=== PATIENT | male | born 1995 | race Caucasian/White ===

== ENCOUNTER 2016-03-11 16:38 | Emergency (ER) | payer OTHER ==
[2016-03-11] MEDS ORDERED: MORPHINE 4 MG/ML 1ML SYRINGE As Ordered ONE ×2 (17:01→17:48)
[2016-03-11] MEDS ORDERED: ONDANSETRON 4MG/2ML VIAL (J2405) As Ordered ONE (17:01)
[2016-03-11 17:19] LABS: BASO % 0.5 % (0.0-1.0); EOS # 0.1 K/mm3 (0.0-0.50); LARGE UNSTAINED CELL # 0.1 K/mm3 (0.0-0.4); LARGE UNSTAINED CELL % 1.8 % (0.0-4.0); LYMPH # 2.1 K/mm3 (1.5-6.5); LYMPH % 31.5 % (24.0-44.0); MEAN CORPUSCULAR HEMOGLOBIN 25.7 pg (27.0-33.0); MEAN CORPUSCULAR HGB CONC 32.6 g/dl (32.0-36.5); MONO # 0.3 K/mm3 (0.0-0.8); MONO % 3.9 % (0.0-5.0); NEUTROPHILS % 61.3 % (36.0-66.0); PLATELET COUNT, AUTOMATED 262 k/mm3 (150-450); RED CELL DISTRIBUTION WIDTH 12.9 % (11.5-14.5); WHITE BLOOD COUNT 6.5 K/mm3 (4.0-10.0)
[2016-03-11 18:17] LABS: ALBUMIN 4.2 GM/DL (3.2-5.2); ALBUMIN/GLOBULIN RATIO 1.24 (1.00-1.93); ALKALINE PHOSPHATASE 72 U/L (45-117); ALT/SGPT 45 U/L (12-78); ANION GAP 9 MEQ/L (8-16); AST/SGOT 22 U/L (15-37); BILIRUBIN,DIRECT < 0.1 MG/DL (0.0-0.2); BILIRUBIN,TOTAL 0.2 MG/DL (0.2-1.0); BLOOD UREA NITROGEN 14 MG/DL (7-18); CALCIUM LEVEL 8.7 MG/DL (8.5-10.1); CARBON DIOXIDE LEVEL 26 MEQ/L (21-32); CHLORIDE LEVEL 105 MEQ/L (98-107); CREATININE FOR GFR 0.84 MG/DL (0.70-1.30); GLUCOSE, FASTING 90 MG/DL (70-105); POTASSIUM SERUM 4.1 MEQ/L (3.5-5.1); SODIUM LEVEL 140 MEQ/L (136-145); TOTAL PROTEIN 7.6 GM/DL (6.4-8.2)
[2016-03-11] MEDS ORDERED: KETOROLAC 30 MG/ML VIAL (J1885) As Ordered ONE (19:26)
--- NOTE | 2016-03-11 20:20 | REPUSA ---
CLINICAL HISTORY: Biliary colic . TECHNIQUE: Realtime sonographic images were obtained in multiple projections. COMMENTS: The liver is of normal size, parenchyma demonstrates normal echogenicity. No discrete hepatic mass is seen. There is no intra or extrahepatic biliary ductal dilatation. CBD measures 1.9 mm. The gallbladder is physiologically distended without evidence of calculi. The gallbladder wall is not thickened and ther e is no pericholecystic fluid. There is no abdominal ascites. The right kidney measures 9.8 cm, free of hydronephrosis. IMPRESSION: No cholelithiasis or findings of acute cholecystitis. Thank you for your kind referral of this patient.
[2016-03-11] MEDS ORDERED: PANTOPRAZOLE 40MG TAB (PROTONIX) As Ordered ONE (21:19)
[2016-03-11] MEDS ORDERED: SUCRALFATE 1 GM TAB As Ordered ONE (21:20)
--- NOTE | 2016-03-11 22:00 | EDDOCDS ---
Physician Documentation [facility] Name: Ben Dwyer Age: 20 yrs Sex: Male : 1995 Arrival Date: 03/11/2016 Time: 16:38 Bed 14 Private MD: Disposition: 03/11 21:27 Critical Care: Critical care not applicable. le Disposition: 03/11/16 21:25 Discharged to Home/Self Care. Impression: Upper abdominal pain, unspecified, Acute gastritis. - Condition is Stable. - Discharge Instructions: Abdominal Pain, Adult, Gastritis, Adult. - Prescriptions for Protonix 40 mg Oral Tablet - take 1 tablet by ORAL route once daily; 30 tablet. - Medication Reconciliation, Kali Zuniga/Kevin, Local Pharmacy Hours form. - Follow up: Kali Zuniga [facility]; When: Call to arrange an appointment; Reason: Recheck today's complaints, Continuance of care. - Problem is new. - Symptoms have improved. - Notes: Keep hydrated Return to the ED for worsening symptoms Historical: - Allergies: no known allergies; - Home Meds: 1. none - PMHx: none; - PSHx: none; - Social history: Smoking status: Patient states was never smoker of tobacco. No barriers to communication noted, The patient speaks fluent Austrian, Speaks appropriately for age. - Family history: Not pertinent. - : The pt / caregiver states he / she is not on anticoagulants. Home medication list is obtained from the patient. - Exposure Risk Screening:: None identified. Vital Signs: 16:45 BP 139 / 81 LA Supine (auto/reg); Pulse 74; Resp 20; Temp 98.6; Pulse Ox 97% on R/A; bnb Weight 73.48 kg / 162 lbs; Height 5 ft. 7 in. (170.18 cm); Pain 7/10; 17:44 BP 138 / 74; Pulse 63; Resp 18; Pain 6/10; kc3 18:12 BP 149 / 71; Pulse 70; Pain 5/10; kc3 19:20 BP 140 / 69 (auto/); tm5 19:20 Pulse 74 MON; Resp 20 S; Pulse Ox 96% on R/A; Pain 3/10; tm5 20:54 BP 138 / 76; Pulse 78; Resp 18; Temp 98.3(O); Pulse Ox 99% on R/A; Pain 2/10; tm5 16:45 Body Mass Index 25.37 (73.48 kg, 170.18 cm) bnb MDM: 16:55 NS 0.9% 1000 ml IV at bolus once ordered. le 16:55 NS 0.9% 1000 ml IV at 100 mL/hr continuous ordered. le 16:55 Ondansetron 4 mg IVP once ordered. le 16:55 morphine 4 mg IVP every 30 minutes; Document pain score/vitals after each dose (Hold if le SBP < 90mmHg) x2 ordered. 16:55 Undress patient appropriately for examination ordered. le 16:56 Basic Metabolic Profile Ordered. EDMS 16:56 CBC with Diff Ordered. EDMS 16:56 Lipase Ordered. EDMS 16:56 Liver Profile Ordered. EDMS 16:56 NOTHING BY MOUTH+DIET ordered. EDMS 16:56 Lactic Acid (Wells tube on ice) Ordered. EDMS 17:29 CARDIAC INJURY PROFILE Ordered. EDMS 17:29 TROPONIN Ordered. EDMS 18:14 CBC with Diff Reviewed. le 18:14 Lactic Acid (Wells tube on ice) Reviewed. le 18:45 Financial registration complete. zo 18:51 [facility] [place] Payment Agreement was scanned into [employer] and attached to record. zo 19:07 Basic Metabolic Profile Reviewed. le 19:07 Lipase Reviewed. le 19:07 Liver Profile Reviewed. le 19:07 CARDIAC INJURY PROFILE Reviewed. le 19:07 TROPONIN Reviewed. le 19:10 US Gallbladder Ordered. EDMS 19:32 ketorolac 30 mg IVP once ordered. tm5 20:47 Fluid Challenge ordered. le 20:57 Pantoprazole 40 mg PO once ordered. le 20:57 Sucralfate 1 grams PO once ordered. le Administered Medications: 17:16 Drug: NS 0.9% 1000 ml [sodium chloride 0.9 % intravenous solution] Route: IV; Rate: ms18 bolus; Site: right antecubital; 18:37 Follow up: IV Status: Completed infusion kc3 17:16 Drug: Ondansetron 4 mg [ondansetron HCl 2 mg/mL intravenous solution (2 mL)] Route: ms18 IVP; Site: left antecubital; 19:15 Follow up: Response: Nausea is resolved; No Adverse Reaction tm5 17:17 Drug: morphine 4 mg [morphine 4 mg/mL intravenous cartridge (1 mL)] Route: IVP; Site: ms18 right antecubital; 17:44 Follow up: BP 138 / 74; Pulse 63 bpm; Resp 18 bpm; Pain 6/10 Adult kc3 17:55 Drug: morphine 4 mg [morphine 4 mg/mL intravenous cartridge (1 mL)] Route: IVP; Site: kc3 right antecubital; 18:12 Follow up: BP 149 / 71; Pulse 70 bpm; Pain 5/10 Adult kc3 18:45 Drug: NS 0.9% 1000 ml [sodium chloride 0.9 % intravenous solution] Route: IV; Rate: 100 kc3 mL/hr; Site: right antecubital; 19:32 Drug: ketorolac 30 mg [ketorolac 30 mg/mL (1 mL) injection solution (1 mL)] Route: IVP; tm5 Site: right antecubital; 20:00 Follow up: Response: No Adverse Reaction; Pain is decreased tm5 21:22 Drug: Pantoprazole 40 mg [pantoprazole 40 mg tablet,delayed release (1 tabs)] Route: PO;tm5 21:22 Drug: Sucralfate 1 grams [sucralfate 1 gram tablet (1 tabs)] Route: PO; tm5 Signatures: Dispatcher [employer] EDParth Chambers Lisa, FNP FNP Liane Washington RN RN kc3 Joyce Drake RN RN tm5 Rachel Virgen RN ms18 The chart was reviewed and I authenticate all verbal orders and agree with the evaluation and treatment provided.Corrections: (The following items were deleted from the chart) 17:29 17:24 TROPONIN+LAB ordered. EDMS EDMS 17:29 17:24 CARDIAC INJURY PROFILE+LAB ordered. EDMS EDMS Attachments: 18:51 [facility] [place] Payment [facility]
--- NOTE | 2016-03-11 22:00 | EDDOCDS ---
Nurse's Notes [facility] Name: Ben Dwyer Age: 20 yrs Sex: Male : 1995 Arrival Date: 03/11/2016 Time: 16:38 Bed 14 Private MD: Diagnosis: Upper abdominal pain, unspecified;Acute gastritis Presentation: 03/11 16:42 Presenting complaint: EMS states: Pt with left upper quadrant pain since this AM kc3 beginning at a 4/10 pain scale and now 7/10. Pt also reports nausea. Risk factors: the patient reports not having a history of previous torsion. 16:42 Acuity: DENIA Level 3 kc3 16:49 Adult Sepsis Screening: The patient does not have new or worsening altered mentation. kc3 Patient's respiratory rate is less than 22. Systolic blood pressure is greater than 100. Patient has a qSOFA score of 0- Negative Sepsis Screen. Suicide/Homicide risk assessment- the patient denies having any suicidal and/or homicidal ideations and does not present with any other emotional, behavioral or mental health complaints. Status: The patient is an active duty irrigation service technician. Transition of care: patient was not received from another setting of care. 16:49 Method Of Arrival: Ambulance kc3 Triage Assessment: 16:49 General: Appears in no apparent distress, comfortable, Behavior is appropriate for age, kc3 cooperative. Pain: Location: left upper quadrant Pain currently is 7 out of 10 on a pain scale. Pt Declines HIV testing. The patient is triaged at the bedside. See Assessment in Nurses Notes section of ED record. Neurological: Level of Consciousness is awake, alert, obeys commands, Oriented to person, place, time. Respiratory: Respiratory effort is even, unlabored. GI: Abdomen is flat, Bowel sounds present X 4 quads. Abd is soft X 4 quads Abd is tender to palpation in left upper quadrant Reports nausea. Derm: Skin is pink, warm & dry. Musculoskeletal: Circulation, motion, and sensation intact. Historical: - Allergies: no known allergies; - Home Meds: 1. none - PMHx: none; - PSHx: none; - Social history: Smoking status: Patient states was never smoker of tobacco. No barriers to communication noted, The patient speaks fluent Frisian, Speaks appropriately for age. - Family history: Not pertinent. - : The pt / caregiver states he / she is not on anticoagulants. Home medication list is obtained from the patient. - Exposure Risk Screening:: None identified. Screenin:51 Screening information is obtained from the patient. Fall risk: No risks identified. kc3 Assistance ADL's: requires no assistance with activities of daily living. Abuse/DV Screen: The patient / caregiver reports he/she is: not in a situation that causes fear, pain or injury. Nutritional screening: No deficits noted. Advance Directives: Currently, there is a health care proxy, Feliciano Dwyer, father. home support is adequate. Assessment: 16:51 General: See triage note for initial assessment. . kc3 17:35 General: Appears in no apparent distress, comfortable, Behavior is appropriate for age, kc3 cooperative. Pain: Location: left upper quadrant Pain currently is 7 out of 10 on a pain scale. Neurological: Level of Consciousness is awake, alert, obeys commands, Oriented to person, place, time. Respiratory: Respiratory effort is even, unlabored. GI: Abdomen is flat, Reports nausea. Derm: Skin is pink, warm & dry. 18:27 General: Appears in no apparent distress, comfortable, Behavior is appropriate for age, kc3 cooperative. Pain: Location: left upper quadrant Pain currently is 5 out of 10 on a pain scale. Neurological: Level of Consciousness is awake, alert, obeys commands, Oriented to person, place, time. Respiratory: Respiratory effort is even, unlabored. GI: Abdomen is flat, Bowel sounds present X 4 quads. Abd is soft X 4 quads Abd is tender to palpation in left upper quadrant. Derm: Skin is pink, warm & dry. 19:05 General: Appears in no apparent distress, comfortable, Behavior is appropriate for age, tm5 cooperative. Pain: Location: left upper quadrant Pain currently is 5 out of 10 on a pain scale. Neurological: Level of Consciousness is awake, alert, obeys commands, Oriented to person, place, time. GI: Abdomen is flat, Bowel sounds present X 4 quads. Abd is soft X 4 quads Abd is tender to palpation in left upper quadrant Reports. 19:06 Derm: Skin is pink, warm & dry. normal. tm5 19:24 Reassessment: Patient appears in no apparent distress at this time. Patient states tm5 symptoms have not improved. per pt left upper abdominal pain is still present 6/10, states LUQ pain is worse when he lifts his upper torso off the bed like a "muscle type pain", denies Nausea at this time, SOPHIE Carrillo aware . 19:32 General: medicated per verbal orders from SOPHIE Carrillo, pt texting on his cell phone & tm5 talkative with friend, no s/s of any distress, awaiting Ultrasound. 20:27 Reassessment: Patient appears in no apparent distress at this time. Patient states tm5 feeling better. Patient states symptoms have improved. 20:54 General: ice water & jayesh ryan provided to pt per orders, pt denies Nausea at this tm5 time . Vital Signs: 16:45 BP 139 / 81 LA Supine (auto/reg); Pulse 74; Resp 20; Temp 98.6; Pulse Ox 97% on R/A; bnb Weight 73.48 kg; Height 5 ft. 7 in. (170.18 cm); Pain 7/10; 17:44 BP 138 / 74; Pulse 63; Resp 18; Pain 6/10; kc3 18:12 BP 149 / 71; Pulse 70; Pain 5/10; kc3 19:20 BP 140 / 69 (auto/); tm5 19:20 Pulse 74 MON; Resp 20 S; Pulse Ox 96% on R/A; Pain 3/10; tm5 20:54 BP 138 / 76; Pulse 78; Resp 18; Temp 98.3(O); Pulse Ox 99% on R/A; Pain 2/10; tm5 16:45 Body Mass Index 25.37 (73.48 kg, 170.18 cm) bnb Vitals: 16:52 Log In Time N/A - ambulance arrival. 3 ED Course: 16:39 Patient visited by Earnestine Bateman, Suction Plate Carrier Cleaner. lbd 16:39 Patient moved to Waiting lbd 16:[address] [facility] 16:42 Liane Alvarez,RN is Primary Nurse. kc3 16:46 Patient visited by Donna Peres PCA. bnb 16:48 Angela Carrillo FNP is PHCP. le 16:48 Triage Initiated kc3 16:51 Maintain field IV. Dressing intact. Site clean & dry. Gauge & site: 18g right AC. kc3 16:52 Patient visited by Liane Alvarez,MELVA. kc3 16:52 The patient / caregiver is instructed regarding the plan of care and ED course. kc3 17:12 Lactic Acid (Wells tube on ice) Sent. kc3 17:12 Basic Metabolic Profile Sent. kc3 17:12 CBC with Diff Sent. kc3 17:12 Lipase Sent. kc3 17:12 Liver Profile Sent. kc3 17:15 Patient visited by Angela Carrillo FNP. le 17:15 Patient visited by Angela Carrillo FNP. le 17:30 CARDIAC INJURY PROFILE Sent. kc3 17:30 TROPONIN Sent. kc3 17:45 Patient visited by Liane Alvarez,MELVA. kc3 18:25 Patient visited by Liane Alvarez,MELVA. kc3 18:51 [facility] [place] Agreement was scanned into [employer] and attached to record. zo 18:59 Patient visited by Liane Alvarez RN. kc3 19:04 Patient visited by Joyce Drake RN. tm5 19:04 Report received from off going RN, assumed care of pt at this time. tm5 19:07 Patient name changed from Christopher\\S\\\\S\\Yuliya\\S\\ to Christopher\\S\\ \\S\\Yuliya. EDMS 19:33 Patient moved to Ultrasound am17 19:46 Patient moved to 14 am17 19:57 Patient visited by Joyce Drake RN. tm5 20:27 Patient visited by Joyce Drake,MELVA. tm5 21:14 US Gallbladder Returned. EDMS 21:23 Patient visited by Jonah Muniz PCA. kb5 21:25 [facility] le 21:57 Patient visited by Joyce Drake RN. tm5 21:57 Discontinued lock intact, bleeding controlled, pressure dressing applied, No tm5 redness/swelling at site. No procedures done that require assistance. Administered Medications: 17:16 Drug: NS 0.9% 1000 ml [sodium chloride 0.9 % intravenous solution] Route: IV; Rate: ms18 bolus; Site: right antecubital; 18:37 Follow up: IV Status: Completed infusion kc3 17:16 Drug: Ondansetron 4 mg [ondansetron HCl 2 mg/mL intravenous solution (2 mL)] Route: ms18 IVP; Site: left antecubital; 19:15 Follow up: Response: Nausea is resolved; No Adverse Reaction tm5 17:17 Drug: morphine 4 mg [morphine 4 mg/mL intravenous cartridge (1 mL)] Route: IVP; Site: ms18 right antecubital; 17:44 Follow up: BP 138 / 74; Pulse 63 bpm; Resp 18 bpm; Pain 6/10 Adult kc3 17:55 Drug: morphine 4 mg [morphine 4 mg/mL intravenous cartridge (1 mL)] Route: IVP; Site: kc3 right antecubital; 18:12 Follow up: BP 149 / 71; Pulse 70 bpm; Pain 5/10 Adult kc3 18:45 Drug: NS 0.9% 1000 ml [sodium chloride 0.9 % intravenous solution] Route: IV; Rate: 100 kc3 mL/hr; Site: right antecubital; 19:32 Drug: ketorolac 30 mg [ketorolac 30 mg/mL (1 mL) injection solution (1 mL)] Route: IVP; tm5 Site: right antecubital; 20:00 Follow up: Response: No Adverse Reaction; Pain is decreased tm5 21:22 Drug: Pantoprazole 40 mg [pantoprazole 40 mg tablet,delayed release (1 tabs)] Route: PO;tm5 21:22 Drug: Sucralfate 1 grams [sucralfate 1 gram tablet (1 tabs)] Route: PO; tm5 Order Results: Lab Order: Basic Metabolic Profile; SPEC'M 03/11/16 17:40 Test: GLUCOSE, FASTING; Value: 90; Range: 70-105; Units: MG/DL; Status: F Test: BLOOD UREA NITROGEN; Value: 14; Range: 7-18; Units: MG/DL; Status: F Test: CREATININE FOR GFR; Value: 0.84; Range: 0.70-1.30; Units: MG/DL; Status: F Test: SODIUM LEVEL; Value: 140; Range: 136-145; Units: MEQ/L; Status: F Test: POTASSIUM SERUM; Value: 4.1; Range: 3.5-5.1; Units: MEQ/L; Status: F Test: CHLORIDE LEVEL; Value: 105; Range: 98-107; Units: MEQ/L; Status: F Test: CARBON DIOXIDE LEVEL; Value: 26; Range: 21-32; Units: MEQ/L; Status: F Test: ANION GAP; Value: 9; Range: 8-16; Units: MEQ/L; Status: F Test: CALCIUM LEVEL; Value: 8.7; Range: 8.5-10.1; Units: MG/DL; Status: F Lab Order: CBC with Diff; SPEC'M 03/11/16 17:08 Test: WHITE BLOOD COUNT; Value: 6.5; Range: 4.0-10.0; Units: K/mm3; Status: F Test: RED BLOOD COUNT; Value: 5.33; Range: 4.30-6.10; Units: M/mm3; Status: F Test: HEMOGLOBIN; Value: 13.7; Range: 14.0-18.0; Abnormal: Below low normal; Units: g/dl; Status: F Test: HEMATOCRIT; Value: 42.1; Range: 42.0-52.0; Units: %; Status: F Test: MEAN CORPUSCULAR VOLUME; Value: 79.0; Range: 80.0-96.0; Abnormal: Below low normal; Units: fl; Status: F Test: MEAN CORPUSCULAR HEMOGLOBIN; Value: 25.7; Range: 27.0-33.0; Abnormal: Below low normal; Units: pg; Status: F Test: MEAN CORPUSCULAR HGB CONC; Value: 32.6; Range: 32.0-36.5; Units: g/dl; Status: F Test: RED CELL DISTRIBUTION WIDTH; Value: 12.9; Range: 11.5-14.5; Units: %; Status: F Test: PLATELET COUNT, AUTOMATED; Value: 262; Range: 150-450; Units: k/mm3; Status: F Test: NEUTROPHILS %; Value: 61.3; Range: 36.0-66.0; Units: %; Status: F Test: LYMPH %; Value: 31.5; Range: 24.0-44.0; Units: %; Status: F Test: MONO %; Value: 3.9; Range: 0.0-5.0; Units: %; Status: F Test: EOS %; Value: 1.0; Range: 0.0-3.0; Units: %; Status: F Test: BASO %; Value: 0.5; Range: 0.0-1.0; Units: %; Status: F Test: LARGE UNSTAINED CELL %; Value: 1.8; Range: 0.0-4.0; Units: %; Status: F Test: NEUTROPHILS #; Value: 4.0; Range: 1.8-7.7; Units: K/mm3; Status: F Test: LYMPH #; Value: 2.1; Range: 1.5-6.5; Units: K/mm3; Status: F Test: MONO #; Value: 0.3; Range: 0.0-0.8; Units: K/mm3; Status: F Test: EOS #; Value: 0.1; Range: 0.0-0.50; Units: K/mm3; Status: F Test: BASO #; Value: 0.0; Range: 0.0-0.2; Units: K/mm3; Status: F Test: LARGE UNSTAINED CELL #; Value: 0.1; Range: 0.0-0.4; Units: K/mm3; Status: F Lab Order: Lipase; SPEC'M 03/11/16 17:40 Test: LIPASE; Value: 121; Range: 73-393; Units: U/L; Status: F Lab Order: Liver Profile; SPEC'M 03/11/16 17:40 Test: AST/SGOT; Value: 22; Range: 15-37; Units: U/L; Status: F Test: ALT/SGPT; Value: 45; Range: 12-78; Units: U/L; Status: F Test: ALKALINE PHOSPHATASE; Value: 72; Range: 45-117; Units: U/L; Status: F Test: BILIRUBIN,TOTAL; Value: 0.2; Range: 0.2-1.0; Units: MG/DL; Status: F Test: BILIRUBIN,DIRECT; Value: < 0.1; Range: 0.0-0.2; Units: MG/DL; Status: F Test: TOTAL PROTEIN; Value: 7.6; Range: 6.4-8.2; Units: GM/DL; Status: F Test: ALBUMIN; Value: 4.2; Range: 3.2-5.2; Units: GM/DL; Status: F Test: ALBUMIN/GLOBULIN RATIO; Value: 1.24; Range: 1.00-1.93; Status: F Lab Order: Lactic Acid (Wells tube on ice); SPEC'M 03/11/16 17:08 Test: LACTIC ACID LEVEL, LACTATE; Value: 1.1; Range: 0.4-2.0; Units: MMOL/L; Status: F Lab Order: CARDIAC INJURY PROFILE; SPEC'M 03/11/16 17:40 Test: CPK CREATINE PHOSPHOKINASE; Value: 159; Range: 39-308; Units: U/L; Status: F Test: CK-MB VALUE MASS; Value: 1.5; Range: 0.0-3.6; Units: NG/ML; Status: F Test: MB/CK RELATIVE INDEX; Value: 0.94; Range: < OR =4; Status: F Test Note: ; DIAGNOSIS CRITERIA MMB ng/ml Relative Index (RI) NON-AMI < or = 5 N/A WELLS ZONE > 5 < or = 4 AMI > 5 > 4 Lab Order: TROPONIN; SPEC'M 03/11/16 17:40 Test: TROPONIN I; Value: < 0.02; Range: < 0.10; Units: NG/ML; Status: F Test Note: ; Troponin I Reference Interval for [employer] LOCI: 99th Percentile= 0.00-0.045 ng/ml Risk Stratification: <= 0.10 ng/ml Decreased Risk for Adverse Clinical Events. 0.10-1.50 ng/ml Increased Risk for Adverse Clinical Events. Evaluation of additional criterion and/or repeat testing in 2-6 hours is suggested to rule out myocardial damage. >= 1.50 ng/ml Indicative of Myocardial Injury. Radiology Order: US Gallbladder Test: US Gallbladder REASON FOR EXAMINATION: Biliary Colic; ; CLINICAL HISTORY: Biliary colic .; TECHNIQUE: Realtime sonographic images were obtained in multiple projections.; COMMENTS:; The liver is of normal size, parenchyma demonstrates normal echogenicity. No discrete hepatic mass is; seen.; There is no intra or extrahepatic biliary ductal dilatation. CBD measures 1.9 mm. The gallbladder is; physiologically distended without evidence of calculi. The gallbladder wall is not thickened and ther; e is no pericholecystic fluid. There is no abdominal ascites.; The right kidney measures 9.8 cm, free of hydronephrosis.; IMPRESSION:; No cholelithiasis or findings of acute cholecystitis.; Thank you for your kind referral of this patient.; ; Outcome: 21:25 Discharge ordered by Provider. le 21:57 Discharge Assessment: Patient awake, alert and oriented x 3. No cognitive and/or tm5 functional deficits noted. Patient verbalized understanding of disposition instructions. patient administered narcotics - yes. Pt provided with safe discharge. The following High Risk Discharge criteria are identified: None. Discharged to home ambulatory, with friend. Condition: good Condition: stable Condition: improved. Discharge instructions given to patient, Instructed on discharge instructions, follow up and referral plans. medication usage, Demonstrated understanding of instructions, medications, Pt was receptive of discharge instructions/ teaching. Prescriptions given X 1. Ultrasound Study completed. Property :Personal belongings accompany Pt. 21:58 Patient left the ED. tm5 Signatures: Dispatcher [employer] EDMS Earnestine Bateman, Suction Plate Carrier Cleaner Unit lbd Chanelle Gurrola, RN RN Parth Umanzor Kristopher, UTILIZATION REVIEW RN UTILIZATION REVIEW RN kb5 Angela Carrillo, FUSION JUNCTURE GRINDER FUSION JUNCTURE GRINDER Nubia Fajardo am17 Rachel Virgen,RN RN ms18 Liane Alvarez,MELVA RN kc3 Joyce Drake RN RN tm5 Donna Peres, UTILIZATION REVIEW RN UTILIZATION REVIEW RN bnb MTDD
--- NOTE | 2016-03-13 22:59 | EDDOCDS ---
Physician Documentation [facility] Name: Ben Dwyer Age: 20 yrs Sex: Male : 1995 Arrival Date: 03/11/2016 Time: 16:38 Bed 14 Private MD: Disposition: 03/11 21:27 Critical Care: Critical care not applicable. le Disposition: 03/11/16 21:25 Discharged to Home/Self Care. Impression: Upper abdominal pain, unspecified, Acute gastritis. - Condition is Stable. - Discharge Instructions: Abdominal Pain, Adult, Gastritis, Adult. - Prescriptions for Protonix 40 mg Oral Tablet - take 1 tablet by ORAL route once daily; 30 tablet. - Medication Reconciliation, Kali Zuniga/Kevin, Local Pharmacy Hours form. - Follow up: Kali Zuniga [facility]; When: Call to arrange an appointment; Reason: Recheck today's complaints, Continuance of care. - Problem is new. - Symptoms have improved. - Notes: Keep hydrated Return to the ED for worsening symptoms Historical: - Allergies: no known allergies; - Home Meds: 1. none - PMHx: none; - PSHx: none; - Social history: Smoking status: Patient states was never smoker of tobacco. No barriers to communication noted, The patient speaks fluent [place], Speaks appropriately for age. - Family history: Not pertinent. - : The pt / caregiver states he / she is not on anticoagulants. Home medication list is obtained from the patient. - Exposure Risk Screening:: None identified. Vital Signs: 16:45 BP 139 / 81 LA Supine (auto/reg); Pulse 74; Resp 20; Temp 98.6; Pulse Ox 97% on R/A; bnb Weight 73.48 kg / 162 lbs; Height 5 ft. 7 in. (170.18 cm); Pain 7/10; 17:44 BP 138 / 74; Pulse 63; Resp 18; Pain 6/10; kc3 18:12 BP 149 / 71; Pulse 70; Pain 5/10; kc3 19:20 BP 140 / 69 (auto/); tm5 19:20 Pulse 74 MON; Resp 20 S; Pulse Ox 96% on R/A; Pain 3/10; tm5 20:54 BP 138 / 76; Pulse 78; Resp 18; Temp 98.3(O); Pulse Ox 99% on R/A; Pain 2/10; tm5 16:45 Body Mass Index 25.37 (73.48 kg, 170.18 cm) bnb MDM: 16:55 NS 0.9% 1000 ml IV at bolus once ordered. le 16:55 NS 0.9% 1000 ml IV at 100 mL/hr continuous ordered. le 16:55 Ondansetron 4 mg IVP once ordered. le 16:55 morphine 4 mg IVP every 30 minutes; Document pain score/vitals after each dose (Hold if le SBP < 90mmHg) x2 ordered. 16:55 Undress patient appropriately for examination ordered. le 16:56 Basic Metabolic Profile Ordered. EDMS 16:56 CBC with Diff Ordered. EDMS 16:56 Lipase Ordered. EDMS 16:56 Liver Profile Ordered. EDMS 16:56 NOTHING BY MOUTH+DIET ordered. EDMS 16:56 Lactic Acid (Wells tube on ice) Ordered. EDMS 17:29 CARDIAC INJURY PROFILE Ordered. EDMS 17:29 TROPONIN Ordered. EDMS 18:14 CBC with Diff Reviewed. le 18:14 Lactic Acid (Wells tube on ice) Reviewed. le 18:45 Financial registration complete. zo 18:51 [facility] Payment Agreement was scanned into Urgent.ly and attached to record. zo 19:07 Basic Metabolic Profile Reviewed. le 19:07 Lipase Reviewed. le 19:07 Liver Profile Reviewed. le 19:07 CARDIAC INJURY PROFILE Reviewed. le 19:07 TROPONIN Reviewed. le 19:10 US Gallbladder Ordered. EDMS 19:32 ketorolac 30 mg IVP once ordered. tm5 20:47 Fluid Challenge ordered. le 20:57 Pantoprazole 40 mg PO once ordered. le 20:57 Sucralfate 1 grams PO once ordered. le 03/12 11:27 T-Sheet-- Draft Copy was scanned into Urgent.ly and attached to record. gb 11:27 PCR was scanned into Urgent.ly and attached to record. gb 11:27 Radiology Report was scanned into Urgent.ly and attached to record. gb Administered Medications: 03/11 17:16 Drug: NS 0.9% 1000 ml [sodium chloride 0.9 % intravenous solution] Route: IV; Rate: ms18 bolus; Site: right antecubital; 18:37 Follow up: IV Status: Completed infusion kc3 17:16 Drug: Ondansetron 4 mg [ondansetron HCl 2 mg/mL intravenous solution (2 mL)] Route: ms18 IVP; Site: left antecubital; 19:15 Follow up: Response: Nausea is resolved; No Adverse Reaction tm5 17:17 Drug: morphine 4 mg [morphine 4 mg/mL intravenous cartridge (1 mL)] Route: IVP; Site: ms18 right antecubital; 17:44 Follow up: BP 138 / 74; Pulse 63 bpm; Resp 18 bpm; Pain 6/10 Adult kc3 17:55 Drug: morphine 4 mg [morphine 4 mg/mL intravenous cartridge (1 mL)] Route: IVP; Site: kc3 right antecubital; 18:12 Follow up: BP 149 / 71; Pulse 70 bpm; Pain 5/10 Adult kc3 18:45 Drug: NS 0.9% 1000 ml [sodium chloride 0.9 % intravenous solution] Route: IV; Rate: 100 kc3 mL/hr; Site: right antecubital; 19:32 Drug: ketorolac 30 mg [ketorolac 30 mg/mL (1 mL) injection solution (1 mL)] Route: IVP; tm5 Site: right antecubital; 20:00 Follow up: Response: No Adverse Reaction; Pain is decreased tm5 21:22 Drug: Pantoprazole 40 mg [pantoprazole 40 mg tablet,delayed release (1 tabs)] Route: PO;tm5 21:22 Drug: Sucralfate 1 grams [sucralfate 1 gram tablet (1 tabs)] Route: PO; tm5 Signatures: Dispatcher MedHost EDMS Mari Lucas, Rohit Reg gb Parth Kowalski Lisa, BRICK CHIMNEY BUILDER BRICK CHIMNEY BUILDER Liane Washington RN RN kc3 Joyce Drake RN RN tm5 Rachel Virgen RN ms18 The chart was reviewed and I authenticate all verbal orders and agree with the evaluation and treatment provided.Corrections: (The following items were deleted from the chart) 17:29 17:24 TROPONIN+LAB ordered. EDMS EDMS 17:29 17:24 CARDIAC INJURY PROFILE+LAB ordered. EDMS EDMS Attachments: 18:51 [facility] Payment Agreement zo 03/12 11:27 T-Sheet-- Draft Copy gb Chart Complete MTDD
--- NOTE | 2016-03-13 22:59 | EDDOCDS ---
Nurse's Notes [facility] Name: Ben Dwyer Age: 20 yrs Sex: Male : 1995 Arrival Date: 03/11/2016 Time: 16:38 Bed 14 Private MD: Diagnosis: Upper abdominal pain, unspecified;Acute gastritis Presentation: 03/11 16:42 Presenting complaint: EMS states: Pt with left upper quadrant pain since this AM kc3 beginning at a 4/10 pain scale and now 7/10. Pt also reports nausea. Risk factors: the patient reports not having a history of previous torsion. 16:42 Acuity: DENIA Level 3 kc3 16:49 Adult Sepsis Screening: The patient does not have new or worsening altered mentation. kc3 Patient's respiratory rate is less than 22. Systolic blood pressure is greater than 100. Patient has a qSOFA score of 0- Negative Sepsis Screen. Suicide/Homicide risk assessment- the patient denies having any suicidal and/or homicidal ideations and does not present with any other emotional, behavioral or mental health complaints. Status: The patient is an active duty service desk agent. Transition of care: patient was not received from another setting of care. 16:49 Method Of Arrival: Ambulance kc3 Triage Assessment: 16:49 General: Appears in no apparent distress, comfortable, Behavior is appropriate for age, kc3 cooperative. Pain: Location: left upper quadrant Pain currently is 7 out of 10 on a pain scale. Pt Declines HIV testing. The patient is triaged at the bedside. See Assessment in Nurses Notes section of ED record. Neurological: Level of Consciousness is awake, alert, obeys commands, Oriented to person, place, time. Respiratory: Respiratory effort is even, unlabored. GI: Abdomen is flat, Bowel sounds present X 4 quads. Abd is soft X 4 quads Abd is tender to palpation in left upper quadrant Reports nausea. Derm: Skin is pink, warm & dry. Musculoskeletal: Circulation, motion, and sensation intact. Historical: - Allergies: no known allergies; - Home Meds: 1. none - PMHx: none; - PSHx: none; - Social history: Smoking status: Patient states was never smoker of tobacco. No barriers to communication noted, The patient speaks fluent [place], Speaks appropriately for age. - Family history: Not pertinent. - : The pt / caregiver states he / she is not on anticoagulants. Home medication list is obtained from the patient. - Exposure Risk Screening:: None identified. Screenin:51 Screening information is obtained from the patient. Fall risk: No risks identified. kc3 Assistance ADL's: requires no assistance with activities of daily living. Abuse/DV Screen: The patient / caregiver reports he/she is: not in a situation that causes fear, pain or injury. Nutritional screening: No deficits noted. Advance Directives: Currently, there is a health care proxy, Feliciano Dwyer, father. home support is adequate. Assessment: 16:51 General: See triage note for initial assessment. . kc3 17:35 General: Appears in no apparent distress, comfortable, Behavior is appropriate for age, kc3 cooperative. Pain: Location: left upper quadrant Pain currently is 7 out of 10 on a pain scale. Neurological: Level of Consciousness is awake, alert, obeys commands, Oriented to person, place, time. Respiratory: Respiratory effort is even, unlabored. GI: Abdomen is flat, Reports nausea. Derm: Skin is pink, warm & dry. 18:27 General: Appears in no apparent distress, comfortable, Behavior is appropriate for age, kc3 cooperative. Pain: Location: left upper quadrant Pain currently is 5 out of 10 on a pain scale. Neurological: Level of Consciousness is awake, alert, obeys commands, Oriented to person, place, time. Respiratory: Respiratory effort is even, unlabored. GI: Abdomen is flat, Bowel sounds present X 4 quads. Abd is soft X 4 quads Abd is tender to palpation in left upper quadrant. Derm: Skin is pink, warm & dry. 19:05 General: Appears in no apparent distress, comfortable, Behavior is appropriate for age, tm5 cooperative. Pain: Location: left upper quadrant Pain currently is 5 out of 10 on a pain scale. Neurological: Level of Consciousness is awake, alert, obeys commands, Oriented to person, place, time. GI: Abdomen is flat, Bowel sounds present X 4 quads. Abd is soft X 4 quads Abd is tender to palpation in left upper quadrant Reports. 19:06 Derm: Skin is pink, warm & dry. normal. tm5 19:24 Reassessment: Patient appears in no apparent distress at this time. Patient states tm5 symptoms have not improved. per pt left upper abdominal pain is still present 6/10, states LUQ pain is worse when he lifts his upper torso off the bed like a "muscle type pain", denies Nausea at this time, SOPHIE Carrillo aware . 19:32 General: medicated per verbal orders from SOPHIE Carrillo, pt texting on his cell phone & tm5 talkative with friend, no s/s of any distress, awaiting Ultrasound. 20:27 Reassessment: Patient appears in no apparent distress at this time. Patient states tm5 feeling better. Patient states symptoms have improved. 20:54 General: ice water & jayesh ryan provided to pt per orders, pt denies Nausea at this tm5 time . Vital Signs: 16:45 BP 139 / 81 LA Supine (auto/reg); Pulse 74; Resp 20; Temp 98.6; Pulse Ox 97% on R/A; bnb Weight 73.48 kg; Height 5 ft. 7 in. (170.18 cm); Pain 7/10; 17:44 BP 138 / 74; Pulse 63; Resp 18; Pain 6/10; kc3 18:12 BP 149 / 71; Pulse 70; Pain 5/10; kc3 19:20 BP 140 / 69 (auto/); tm5 19:20 Pulse 74 MON; Resp 20 S; Pulse Ox 96% on R/A; Pain 3/10; tm5 20:54 BP 138 / 76; Pulse 78; Resp 18; Temp 98.3(O); Pulse Ox 99% on R/A; Pain 2/10; tm5 16:45 Body Mass Index 25.37 (73.48 kg, 170.18 cm) bnb Vitals: 16:52 Log In Time N/A - ambulance arrival. 3 ED Course: 16:39 Patient visited by Earnestine Bateman, Wagon Washer. lbd 16:39 Patient moved to Waiting lbd 16:41 Patient moved to [facility] 16:42 Liane Alvarez,RN is Primary Nurse. kc3 16:46 Patient visited by Donna Peres PCA. bnb 16:48 Angela Carrillo FNP is PHCP. le 16:48 Triage Initiated kc3 16:51 Maintain field IV. Dressing intact. Site clean & dry. Gauge & site: 18g right AC. kc3 16:52 Patient visited by Liane Alvarez,MELVA. kc3 16:52 The patient / caregiver is instructed regarding the plan of care and ED course. kc3 17:12 Lactic Acid (Wells tube on ice) Sent. kc3 17:12 Basic Metabolic Profile Sent. kc3 17:12 CBC with Diff Sent. kc3 17:12 Lipase Sent. kc3 17:12 Liver Profile Sent. kc3 17:15 Patient visited by Angela Carrillo FNP. le 17:15 Patient visited by Angela Carrillo FNP. le 17:30 CARDIAC INJURY PROFILE Sent. kc3 17:30 TROPONIN Sent. kc3 17:45 Patient visited by Liane Alvarez,MELVA. kc3 18:25 Patient visited by Liane Alvarez,MELVA. kc3 18:51 [facility] Payment Agreement was scanned into [employer] and attached to record. zo 18:59 Patient visited by Liane Alvarez RN. kc3 19:04 Patient visited by Joyce Drake RN. tm5 19:04 Report received from off going RN, assumed care of pt at this time. tm5 19:07 Patient name changed from Christopher\\S\\\\S\\Yuliya\\S\\ to Christopher\\S\\ \\S\\Yuliya. EDMS 19:33 Patient moved to Ultrasound am17 19:46 Patient moved to 14 am17 19:57 Patient visited by Joyce Drake,MELVA. tm5 20:27 Patient visited by Joyce Drake,MELVA. tm5 21:14 US Gallbladder Returned. EDMS 21:23 Patient visited by Jonah Muniz PCA. kb5 21:25 [place] is Referral Physician. le 21:57 Patient visited by Joyce Drake,MELVA. tm5 21:57 Discontinued lock intact, bleeding controlled, pressure dressing applied, No tm5 redness/swelling at site. No procedures done that require assistance. 03/12 11: T-Sheet-- Draft Copy was scanned into [employer] and attached to record. gb 11:27 PCR was scanned into Ter[employer] and attached to record. gb 11:27 Radiology Report was scanned into Ter[employer] and attached to record. gb Administered Medications: 03/11 17:16 Drug: NS 0.9% 1000 ml [sodium chloride 0.9 % intravenous solution] Route: IV; Rate: ms18 bolus; Site: right antecubital; 18:37 Follow up: IV Status: Completed infusion kc3 17:16 Drug: Ondansetron 4 mg [ondansetron HCl 2 mg/mL intravenous solution (2 mL)] Route: ms18 IVP; Site: left antecubital; 19:15 Follow up: Response: Nausea is resolved; No Adverse Reaction tm5 17:17 Drug: morphine 4 mg [morphine 4 mg/mL intravenous cartridge (1 mL)] Route: IVP; Site: ms18 right antecubital; 17:44 Follow up: BP 138 / 74; Pulse 63 bpm; Resp 18 bpm; Pain 6/10 Adult kc3 17:55 Drug: morphine 4 mg [morphine 4 mg/mL intravenous cartridge (1 mL)] Route: IVP; Site: kc3 right antecubital; 18:12 Follow up: BP 149 / 71; Pulse 70 bpm; Pain 5/10 Adult kc3 18:45 Drug: NS 0.9% 1000 ml [sodium chloride 0.9 % intravenous solution] Route: IV; Rate: 100 kc3 mL/hr; Site: right antecubital; 19:32 Drug: ketorolac 30 mg [ketorolac 30 mg/mL (1 mL) injection solution (1 mL)] Route: IVP; tm5 Site: right antecubital; 20:00 Follow up: Response: No Adverse Reaction; Pain is decreased tm5 21:22 Drug: Pantoprazole 40 mg [pantoprazole 40 mg tablet,delayed release (1 tabs)] Route: PO;tm5 21:22 Drug: Sucralfate 1 grams [sucralfate 1 gram tablet (1 tabs)] Route: PO; tm5 Order Results: Lab Order: Basic Metabolic Profile; SPEC'M 03/11/16 17:40 Test: GLUCOSE, FASTING; Value: 90; Range: 70-105; Units: MG/DL; Status: F Test: BLOOD UREA NITROGEN; Value: 14; Range: 7-18; Units: MG/DL; Status: F Test: CREATININE FOR GFR; Value: 0.84; Range: 0.70-1.30; Units: MG/DL; Status: F Test: SODIUM LEVEL; Value: 140; Range: 136-145; Units: MEQ/L; Status: F Test: POTASSIUM SERUM; Value: 4.1; Range: 3.5-5.1; Units: MEQ/L; Status: F Test: CHLORIDE LEVEL; Value: 105; Range: 98-107; Units: MEQ/L; Status: F Test: CARBON DIOXIDE LEVEL; Value: 26; Range: 21-32; Units: MEQ/L; Status: F Test: ANION GAP; Value: 9; Range: 8-16; Units: MEQ/L; Status: F Test: CALCIUM LEVEL; Value: 8.7; Range: 8.5-10.1; Units: MG/DL; Status: F Lab Order: CBC with Diff; SPEC'M 03/11/16 17:08 Test: WHITE BLOOD COUNT; Value: 6.5; Range: 4.0-10.0; Units: K/mm3; Status: F Test: RED BLOOD COUNT; Value: 5.33; Range: 4.30-6.10; Units: M/mm3; Status: F Test: HEMOGLOBIN; Value: 13.7; Range: 14.0-18.0; Abnormal: Below low normal; Units: g/dl; Status: F Test: HEMATOCRIT; Value: 42.1; Range: 42.0-52.0; Units: %; Status: F Test: MEAN CORPUSCULAR VOLUME; Value: 79.0; Range: 80.0-96.0; Abnormal: Below low normal; Units: fl; Status: F Test: MEAN CORPUSCULAR HEMOGLOBIN; Value: 25.7; Range: 27.0-33.0; Abnormal: Below low normal; Units: pg; Status: F Test: MEAN CORPUSCULAR HGB CONC; Value: 32.6; Range: 32.0-36.5; Units: g/dl; Status: F Test: RED CELL DISTRIBUTION WIDTH; Value: 12.9; Range: 11.5-14.5; Units: %; Status: F Test: PLATELET COUNT, AUTOMATED; Value: 262; Range: 150-450; Units: k/mm3; Status: F Test: NEUTROPHILS %; Value: 61.3; Range: 36.0-66.0; Units: %; Status: F Test: LYMPH %; Value: 31.5; Range: 24.0-44.0; Units: %; Status: F Test: MONO %; Value: 3.9; Range: 0.0-5.0; Units: %; Status: F Test: EOS %; Value: 1.0; Range: 0.0-3.0; Units: %; Status: F Test: BASO %; Value: 0.5; Range: 0.0-1.0; Units: %; Status: F Test: LARGE UNSTAINED CELL %; Value: 1.8; Range: 0.0-4.0; Units: %; Status: F Test: NEUTROPHILS #; Value: 4.0; Range: 1.8-7.7; Units: K/mm3; Status: F Test: LYMPH #; Value: 2.1; Range: 1.5-6.5; Units: K/mm3; Status: F Test: MONO #; Value: 0.3; Range: 0.0-0.8; Units: K/mm3; Status: F Test: EOS #; Value: 0.1; Range: 0.0-0.50; Units: K/mm3; Status: F Test: BASO #; Value: 0.0; Range: 0.0-0.2; Units: K/mm3; Status: F Test: LARGE UNSTAINED CELL #; Value: 0.1; Range: 0.0-0.4; Units: K/mm3; Status: F Lab Order: Lipase; SPEC' 03/11/16 17:40 Test: LIPASE; Value: 121; Range: 73-393; Units: U/L; Status: F Lab Order: Liver Profile; SPEC' 03/11/16 17:40 Test: AST/SGOT; Value: 22; Range: 15-37; Units: U/L; Status: F Test: ALT/SGPT; Value: 45; Range: 12-78; Units: U/L; Status: F Test: ALKALINE PHOSPHATASE; Value: 72; Range: 45-117; Units: U/L; Status: F Test: BILIRUBIN,TOTAL; Value: 0.2; Range: 0.2-1.0; Units: MG/DL; Status: F Test: BILIRUBIN,DIRECT; Value: < 0.1; Range: 0.0-0.2; Units: MG/DL; Status: F Test: TOTAL PROTEIN; Value: 7.6; Range: 6.4-8.2; Units: GM/DL; Status: F Test: ALBUMIN; Value: 4.2; Range: 3.2-5.2; Units: GM/DL; Status: F Test: ALBUMIN/GLOBULIN RATIO; Value: 1.24; Range: 1.00-1.93; Status: F Lab Order: Lactic Acid (Wells tube on ice); SPEC'M 03/11/16 17:08 Test: LACTIC ACID LEVEL, LACTATE; Value: 1.1; Range: 0.4-2.0; Units: MMOL/L; Status: F Lab Order: CARDIAC INJURY PROFILE; SPEC'M 03/11/16 17:40 Test: CPK CREATINE PHOSPHOKINASE; Value: 159; Range: 39-308; Units: U/L; Status: F Test: CK-MB VALUE MASS; Value: 1.5; Range: 0.0-3.6; Units: NG/ML; Status: F Test: MB/CK RELATIVE INDEX; Value: 0.94; Range: < OR =4; Status: F Test Note: ; DIAGNOSIS CRITERIA MMB ng/ml Relative Index (RI) NON-AMI < or = 5 N/A WELLS ZONE > 5 < or = 4 AMI > 5 > 4 Lab Order: TROPONIN; SPEC'M 03/11/16 17:40 Test: TROPONIN I; Value: < 0.02; Range: < 0.10; Units: NG/ML; Status: F Test Note: ; Troponin I Reference Interval for Siemens myhomemove LOCI: 99th Percentile= 0.00-0.045 ng/ml Risk Stratification: <= 0.10 ng/ml Decreased Risk for Adverse Clinical Events. 0.10-1.50 ng/ml Increased Risk for Adverse Clinical Events. Evaluation of additional criterion and/or repeat testing in 2-6 hours is suggested to rule out myocardial damage. >= 1.50 ng/ml Indicative of Myocardial Injury. Radiology Order: US Gallbladder Test: US Gallbladder REASON FOR EXAMINATION: Biliary Colic; ; CLINICAL HISTORY: Biliary colic .; TECHNIQUE: Realtime sonographic images were obtained in multiple projections.; COMMENTS:; The liver is of normal size, parenchyma demonstrates normal echogenicity. No discrete hepatic mass is; seen.; There is no intra or extrahepatic biliary ductal dilatation. CBD measures 1.9 mm. The gallbladder is; physiologically distended without evidence of calculi. The gallbladder wall is not thickened and ther; e is no pericholecystic fluid. There is no abdominal ascites.; The right kidney measures 9.8 cm, free of hydronephrosis.; IMPRESSION:; No cholelithiasis or findings of acute cholecystitis.; Thank you for your kind referral of this patient.; ; Outcome: 21:25 Discharge ordered by Provider. le 21:57 Discharge Assessment: Patient awake, alert and oriented x 3. No cognitive and/or tm5 functional deficits noted. Patient verbalized understanding of disposition instructions. patient administered narcotics - yes. Pt provided with safe discharge. The following High Risk Discharge criteria are identified: None. Discharged to home ambulatory, with friend. Condition: good Condition: stable Condition: improved. Discharge instructions given to patient, Instructed on discharge instructions, follow up and referral plans. medication usage, Demonstrated understanding of instructions, medications, Pt was receptive of discharge instructions/ teaching. Prescriptions given X 1. Ultrasound Study completed. Property :Personal belongings accompany Pt. 21:58 Patient left the ED. tm5 Signatures: Dispatcher MedHost EDMS Earnestine Bateman, Wagon Washer Unit lbd Chanelle Gurrola RN RN Mari Bland, Rohit Reg gb Parth Kowalski Kristopher, FIELD BROOMER FIELD BROOMER kb5 Angela Carrillo, INDUSTRIAL SALES ENGINEER INDUSTRIAL SALES ENGINEER Nubia Fajardo am17 Rachel Virgen RN RN ms18 Liane Alvarez RN RN kc3 Joyce Drake,MELVA FRYE tm5 Donna Peres, FIELD BROOMER FIELD BROOMER bnb Chart Complete MTDD
--- NOTE | 2016-03-13 22:59 | EDDOCDS ---
Physician Documentation [facility] Name: Ben Dwyer Age: 20 yrs Sex: Male : 1995 Arrival Date: 03/11/2016 Time: 16:38 Bed 14 Private MD: Disposition: 03/11 21:27 Critical Care: Critical care not applicable. le Disposition: 03/11/16 21:25 Discharged to Home/Self Care. Impression: Upper abdominal pain, unspecified, Acute gastritis. - Condition is Stable. - Discharge Instructions: Abdominal Pain, Adult, Gastritis, Adult. - Prescriptions for Protonix 40 mg Oral Tablet - take 1 tablet by ORAL route once daily; 30 tablet. - Medication Reconciliation, Kali Zuniga/Kevin, Local Pharmacy Hours form. - Follow up: Kali Zuniga [facility]; When: Call to arrange an appointment; Reason: Recheck today's complaints, Continuance of care. - Problem is new. - Symptoms have improved. - Notes: Keep hydrated Return to the ED for worsening symptoms Historical: - Allergies: no known allergies; - Home Meds: 1. none - PMHx: none; - PSHx: none; - Social history: Smoking status: Patient states was never smoker of tobacco. No barriers to communication noted, The patient speaks fluent Cypriot, Speaks appropriately for age. - Family history: Not pertinent. - : The pt / caregiver states he / she is not on anticoagulants. Home medication list is obtained from the patient. - Exposure Risk Screening:: None identified. Vital Signs: 16:45 BP 139 / 81 LA Supine (auto/reg); Pulse 74; Resp 20; Temp 98.6; Pulse Ox 97% on R/A; bnb Weight 73.48 kg / 162 lbs; Height 5 ft. 7 in. (170.18 cm); Pain 7/10; 17:44 BP 138 / 74; Pulse 63; Resp 18; Pain 6/10; kc3 18:12 BP 149 / 71; Pulse 70; Pain 5/10; kc3 19:20 BP 140 / 69 (auto/); tm5 19:20 Pulse 74 MON; Resp 20 S; Pulse Ox 96% on R/A; Pain 3/10; tm5 20:54 BP 138 / 76; Pulse 78; Resp 18; Temp 98.3(O); Pulse Ox 99% on R/A; Pain 2/10; tm5 16:45 Body Mass Index 25.37 (73.48 kg, 170.18 cm) bnb MDM: 16:55 NS 0.9% 1000 ml IV at bolus once ordered. le 16:55 NS 0.9% 1000 ml IV at 100 mL/hr continuous ordered. le 16:55 Ondansetron 4 mg IVP once ordered. le 16:55 morphine 4 mg IVP every 30 minutes; Document pain score/vitals after each dose (Hold if le SBP < 90mmHg) x2 ordered. 16:55 Undress patient appropriately for examination ordered. le 16:56 Basic Metabolic Profile Ordered. EDMS 16:56 CBC with Diff Ordered. EDMS 16:56 Lipase Ordered. EDMS 16:56 Liver Profile Ordered. EDMS 16:56 NOTHING BY MOUTH+DIET ordered. EDMS 16:56 Lactic Acid (Wells tube on ice) Ordered. EDMS 17:29 CARDIAC INJURY PROFILE Ordered. EDMS 17:29 TROPONIN Ordered. EDMS 18:14 CBC with Diff Reviewed. le 18:14 Lactic Acid (Wells tube on ice) Reviewed. le 18:45 Financial registration complete. zo 18:51 [place] was scanned into [employer] and attached to record. zo 19:07 Basic Metabolic Profile Reviewed. le 19:07 Lipase Reviewed. le 19:07 Liver Profile Reviewed. le 19:07 CARDIAC INJURY PROFILE Reviewed. le 19:07 TROPONIN Reviewed. le 19:10 US Gallbladder Ordered. EDMS 19:32 ketorolac 30 mg IVP once ordered. tm5 20:47 Fluid Challenge ordered. le 20:57 Pantoprazole 40 mg PO once ordered. le 20:57 Sucralfate 1 grams PO once ordered. le 03/12 11:27 T-Sheet-- Draft Copy was scanned into [employer] and attached to record. gb 11:27 PCR was scanned into [employer] and attached to record. gb 11:27 Radiology Report was scanned into [employer] and attached to record. gb Administered Medications: 03/11 17:16 Drug: NS 0.9% 1000 ml [sodium chloride 0.9 % intravenous solution] Route: IV; Rate: ms18 bolus; Site: right antecubital; 18:37 Follow up: IV Status: Completed infusion kc3 17:16 Drug: Ondansetron 4 mg [ondansetron HCl 2 mg/mL intravenous solution (2 mL)] Route: ms18 IVP; Site: left antecubital; 19:15 Follow up: Response: Nausea is resolved; No Adverse Reaction tm5 17:17 Drug: morphine 4 mg [morphine 4 mg/mL intravenous cartridge (1 mL)] Route: IVP; Site: ms18 right antecubital; 17:44 Follow up: BP 138 / 74; Pulse 63 bpm; Resp 18 bpm; Pain 6/10 Adult kc3 17:55 Drug: morphine 4 mg [morphine 4 mg/mL intravenous cartridge (1 mL)] Route: IVP; Site: kc3 right antecubital; 18:12 Follow up: BP 149 / 71; Pulse 70 bpm; Pain 5/10 Adult kc3 18:45 Drug: NS 0.9% 1000 ml [sodium chloride 0.9 % intravenous solution] Route: IV; Rate: 100 kc3 mL/hr; Site: right antecubital; 19:32 Drug: ketorolac 30 mg [ketorolac 30 mg/mL (1 mL) injection solution (1 mL)] Route: IVP; tm5 Site: right antecubital; 20:00 Follow up: Response: No Adverse Reaction; Pain is decreased tm5 21:22 Drug: Pantoprazole 40 mg [pantoprazole 40 mg tablet,delayed release (1 tabs)] Route: PO;tm5 21:22 Drug: Sucralfate 1 grams [sucralfate 1 gram tablet (1 tabs)] Route: PO; tm5 Signatures: Dispatcher [employer] EDMS Mari Lucas, Rohit Reg gb Parth Kowalski Lisa, FISHING TOOL OPERATOR FISHING TOOL OPERATOR Liane Washington RN RN kc3 Joyce Drake RN RN tm5 Rachel Virgen RN [id number] The chart was reviewed and I authenticate all verbal orders and agree with the evaluation and treatment provided.Corrections: (The following items were deleted from the chart) 17:29 17:24 TROPONIN+LAB ordered. EDMS EDMS 17:29 17:24 CARDIAC INJURY PROFILE+LAB ordered. EDMS EDMS Attachments: 18:51 [facility] Payment Agreement zo 03/12 11:27 T-Sheet-- Draft Copy gb Chart Complete MTDD
== END 2016-03-11 21:58 | disposition home or self-care (01) ==
LOC: M ED 16:38
DX: K29.00 Acute gastritis without bleeding (principal)
CPT/HCPCS: 76705; 80048; 80076; 82550; 82553; 83605; 83690; 85025; 96361; 96374; 96375; 96376; 99284; J1885; J2405

== ENCOUNTER 2017-05-10 20:14 | Emergency (ER) | payer OTHER ==
[2017-05-10] MEDS: GI COCKTAIL 50ML BTL(HYOSCYAMINE/MAALOX/LIDOCAINE VISCOUS)(1:3:1) PO (23:15)
[2017-05-10 23:26] LABS: BASO # 0.1 10^3/uL (0.0-0.2); BASO % 0.5 % (0.0-1.0); EOS # 0.1 10^3/uL (0.0-0.50); EOS % 0.7 % (0.0-3.0); HEMATOCRIT 50.2 % (42.0-52.0); HEMOGLOBIN 15.8 g/dl (14.0-18.0); IMMATURE GRANULOCYTE % 0.2 % (0-3.0); LYMPH # 2.8 10^3/uL (1.5-6.5); LYMPH % 28.1 % (24.0-44.0); MEAN CORPUSCULAR HEMOGLOBIN 25.6 pg (27.0-33.0); MEAN CORPUSCULAR HGB CONC 31.5 g/dl (32.0-36.5); MEAN CORPUSCULAR VOLUME 81.4 fl (80.0-96.0); MONO # 0.7 10^3/uL (0.0-0.8); MONO % 7.2 % (0.0-5.0); NEUTROPHILS # 6.3 10^3/uL (1.8-7.7); NEUTROPHILS % 63.3 % (36.0-66.0); PLATELET COUNT, AUTOMATED 295 10^3/uL (150-450); RED BLOOD COUNT 6.17 10^6/uL (4.30-6.10); RED CELL DISTRIBUTION WIDTH 12.9 % (11.5-14.5); WHITE BLOOD COUNT 9.9 10^3/uL (4.0-10.0)
[2017-05-11 00:01] LABS: ALBUMIN 4.2 GM/DL (3.2-5.2); ALBUMIN/GLOBULIN RATIO 1.08 (1.00-1.93); ALKALINE PHOSPHATASE 84 U/L (45-117); ALT/SGPT 52 U/L (12-78); ANION GAP 5 MEQ/L (8-16); AST/SGOT 25 U/L (7-37); BILIRUBIN,DIRECT < 0.1 MG/DL (0.0-0.2); BILIRUBIN,TOTAL 0.2 MG/DL (0.2-1.0); BLOOD UREA NITROGEN 12 MG/DL (7-18); CALCIUM LEVEL 8.7 MG/DL (8.5-10.1); CARBON DIOXIDE LEVEL 31 MEQ/L (21-32); CHLORIDE LEVEL 105 MEQ/L (98-107); CPK CREATINE PHOSPHOKINASE 180 U/L (39-308); GLUCOSE, FASTING 91 MG/DL (70-100); LIPASE 133 U/L (73-393); POTASSIUM SERUM 4.3 MEQ/L (3.5-5.1); SODIUM LEVEL 141 MEQ/L (136-145); TOTAL PROTEIN 8.1 GM/DL (6.4-8.2); TROPONIN I < 0.02 NG/ML (< 0.10)
[2017-05-11 00:05] LABS: CK-MB VALUE MASS < 1.0 NG/ML (<3.6); MB/CK RELATIVE INDEX 0.55 (< OR =4); THYROID STIMULATING HORMONE 0.389 uIU/ML (0.463-3.98)
== END 2017-05-11 00:58 | disposition home or self-care (01) ==
LOC: M ED 05-11 00:58
DX: M94.0 Chondrocostal junction syndrome [Tietze] (principal)
CPT/HCPCS: 71046

== ENCOUNTER 2017-07-31 23:23 | Emergency (ER) | payer OTHER ==
[2017-08-01] MEDS: PERCOCET 5MG/325MG TAB PO (00:20)
== END 2017-08-01 00:30 | disposition home or self-care (01) ==
LOC: M ED 23:23
DX: S01.01XA Laceration without foreign body of scalp, initial encounter (principal); X58.XXXA Exposure to other specified factors, initial encounter; Y92.89 Other specified places as the place of occurrence of the external cause; M54.9 Dorsalgia, unspecified
CPT/HCPCS: 12002

== ENCOUNTER 2017-08-15 23:56 | Emergency (ER) | payer OTHER ==
[2017-08-16 02:26] LABS: BASO % 0.3 % (0.0-1.0); EOS # 0.1 10^3/uL (0.0-0.50); EOS % 0.8 % (0.0-3.0); HEMATOCRIT 49.8 % (42.0-52.0); IMMATURE GRANULOCYTE % 0.3 % (0-3.0); LYMPH # 2.8 10^3/uL (1.5-6.5); LYMPH % 24.2 % (24.0-44.0); MEAN CORPUSCULAR HGB CONC 32.1 g/dl (32.0-36.5); MONO # 0.8 10^3/uL (0.0-0.8); NEUTROPHILS # 7.7 10^3/uL (1.8-7.7); NEUTROPHILS % 67.4 % (36.0-66.0); PLATELET COUNT, AUTOMATED 286 10^3/uL (150-450); RED BLOOD COUNT 6.15 10^6/uL (4.30-6.10); RED CELL DISTRIBUTION WIDTH 13.6 % (11.5-14.5); WHITE BLOOD COUNT 11.4 10^3/uL (4.0-10.0)
[2017-08-16 02:39] LABS: INR 1.01; PROTHROMBIN TIME 13.4 SECONDS (12.1-14.4)
[2017-08-16 02:40] LABS: PARTIAL THROMBOPLASTIN TIME 29.7 SECONDS (25.4-37.6)
[2017-08-16 02:51] LABS: ANION GAP 6 MEQ/L (8-16); BLOOD UREA NITROGEN 10 MG/DL (7-18); CALCIUM LEVEL 9.3 MG/DL (8.5-10.1); CARBON DIOXIDE LEVEL 31 MEQ/L (21-32); CHLORIDE LEVEL 103 MEQ/L (98-107); CPK CREATINE PHOSPHOKINASE 138 U/L (39-308); CREATININE FOR GFR 0.99 MG/DL (0.70-1.30); GLUCOSE, FASTING 97 MG/DL (70-100); SODIUM LEVEL 140 MEQ/L (136-145); TROPONIN I < 0.02 NG/ML (< 0.10)
[2017-08-16 02:52] LABS: MB/CK RELATIVE INDEX 0.72 (< OR =4)
[2017-08-16] MEDS ORDERED: ISOVUE-370 76% 100ML VIAL (Q9967) As Ordered (03:04)
== END 2017-08-16 04:45 | disposition home or self-care (01) ==
LOC: M ED 23:56
DX: R07.89 Other chest pain (principal); Z79.899 Other long term (current) drug therapy
CPT/HCPCS: Q9967